=== PATIENT | female | born 1975 | race Caucasian/White ===

== ENCOUNTER 2018-03-03 08:08 | Emergency (ER) | payer OTHER ==
[~2018-03-03] VITALS: Ht 154.9 cm; Wt 130.2 kg
[~2018-03-03 08:08] MED LIST: ATABEX PRENATAL1 TAB PO; SYNTHROID137 MCG PO
[2018-03-03] MEDS ORDERED: VITAMIN D2000 UNI1 (08:30)
[2018-03-03] MEDS ORDERED: SYNTHROID200 MCG (08:30)
[2018-03-03] MEDS ORDERED: IRON159 MG (08:30)
== END 2018-03-03 10:49 | disposition home or self-care (01) ==
LOC: ER 08:08
DX: M54.5 Low back pain (principal); M62.830 Muscle spasm of back

== ENCOUNTER 2018-12-17 13:19 | Emergency (ER) | payer OTHER ==
[~2018-12-17] VITALS: Ht 152.4 cm; Wt 129.3 kg
[~2018-12-17 13:19] MED LIST changes: +IRON159 MG; +SYNTHROID200 MCG; +VITAMIN D2000 UNI1
== END 2018-12-17 20:06 | disposition home or self-care (01) ==
LOC: ER 13:19
DX: K52.9 Noninfective gastroenteritis and colitis, unspecified (principal)